=== PATIENT | female | born 1990 | race Caucasian/White ===

== ENCOUNTER → 2017-10-11 | Outpatient (CLI) | payer OTHER | LOC: M SMT 09:46 | DX: Z34.82 Encounter for supervision of other normal pregnancy, second trimester (principal); Z3A.19 19 weeks gestation of pregnancy ==

== ENCOUNTER → 2017-11-02 | Outpatient (CLI) | payer OTHER | LOC: M SMT 14:46 | DX: Z34.82 Encounter for supervision of other normal pregnancy, second trimester (principal); Z3A.22 22 weeks gestation of pregnancy | CPT/HCPCS: 76816 ==

== ENCOUNTER → 2017-12-03 | Outpatient (CLI) | payer OTHER ==
[2017-12-03 14:19] LABS: HEMATOCRIT 36.2 % (36.0-47.0); HEMOGLOBIN 12.1 g/dl (12.0-16.0); MEAN CORPUSCULAR HEMOGLOBIN 31.8 pg (27.0-33.0); MEAN CORPUSCULAR HGB CONC 33.4 g/dl (32.0-36.5); PLATELET COUNT, AUTOMATED 286 10^3/uL (150-450); RED BLOOD COUNT 3.81 10^6/uL (4.00-5.40); RED CELL DISTRIBUTION WIDTH 13.6 % (11.5-14.5); WHITE BLOOD COUNT 8.3 10^3/uL (4.0-10.0)
[2017-12-03 14:19] LABS: GLUCOSE CHALLENGE TEST 1 HOUR 128 MG/DL (LESS THAN 140)
== END ==
LOC: M SMT 08:11
DX: Z34.82 Encounter for supervision of other normal pregnancy, second trimester (principal)

== ENCOUNTER → 2018-02-05 | Outpatient (REF) | payer OTHER | LOC: M LAB REF 17:00 | DX: Z34.83 Encounter for supervision of other normal pregnancy, third trimester (principal) ==

== ENCOUNTER 2018-02-27 00:17 | Inpatient (IN) | payer OTHER ==
[2018-02-27] MEDS: LACTATED RINGER'S 1000 ML IV (00:49)
[2018-02-27] MEDS ORDERED: LR 1,000 ML IV (00:49)
[2018-02-27] MEDS ORDERED: FENTANYL 2MCG/ML ROPIVACAINE 0.2% IN 0.9% NACL 200ML IVBAG As Ordered (00:53)
[2018-02-27 00:58] LABS: HEMATOCRIT 35.3 % (36.0-47.0); HEMOGLOBIN 12.5 g/dl (12.0-15.5); MEAN CORPUSCULAR HGB CONC 35.4 g/dl (32.0-36.5); MEAN CORPUSCULAR VOLUME 90.3 fl (80.0-96.0); PLATELET COUNT, AUTOMATED 242 10^3/uL (150-450); RED BLOOD COUNT 3.91 10^6/uL (4.00-5.40); RED CELL DISTRIBUTION WIDTH 13.2 % (11.5-14.5); WHITE BLOOD COUNT 17.1 10^3/uL (4.0-10.0)
[2018-02-27] MEDS ORDERED: OXYTOCIN 30 UNITS IN 0.9% NaCl 500ML IV BAG (J2590) As Ordered (02:56)
[2018-02-27] MEDS: OXYTOCIN DRIP 30 UNITS in APPROPRIATE DILUENT 1 EA IV (04:48)
[2018-02-27] MEDS ORDERED: ONDANSETRON 4MG/2ML VIAL (J2405) IV (05:00)
[2018-02-27] MEDS ORDERED: PROMETHAZINE 25 MG TAB PO (05:00)
[2018-02-27] MEDS: PRENATAL VITAMINS CHEWABLE TABLET PO (07:35)
[2018-02-27] MEDS: IBUPROFEN 800 MG TAB PO (19:28)
[2018-02-27] MEDS: DOCUSATE SODIUM 100 MG CAP PO (20:48)
[2018-02-28] MEDS: ACETAMINOPHEN 500 MG TAB PO (04:04)
[2018-02-28] MEDS: PRENATAL VITAMINS CHEWABLE TABLET PO (08:20)
[2018-02-28] MEDS: IBUPROFEN 800 MG TAB PO (10:04)
[2018-03-01] MEDS: RHOGAM 300 MCG (1500 IU) INJ (J2790) IM (07:11)
[2018-03-01] MEDS: MEASLES,MUMPS,RUBELLA VACCINE INJ (MMR-II) (90707) SC (07:11)
[2018-03-01] MEDS: PRENATAL VITAMINS CHEWABLE TABLET PO (08:33)
[2018-03-01] MEDS: DIBUCAINE 1% OINTMENT 30GM TOP (08:33)
== END 2018-03-01 15:20 | disposition home or self-care (01) | DRG 775 ==
LOC: M LDO 00:17 → M LDI 00:33 → M OBS 08:39
PROVIDERS: Obstetrics & Gynecology
PROC: 10E0XZZ Delivery of Products of Conception, External Approach (ICD-10-PCS; principal; 2018-02-27)
PROC: 0HQ9XZZ Repair Perineum Skin, External Approach (ICD-10-PCS; 2018-02-27)
DX: O70.0 First degree perineal laceration during delivery (principal); Z37.0 Single live birth; Z3A.39 39 weeks gestation of pregnancy

== ENCOUNTER → 2019-12-16 | Outpatient (REF) | payer OTHER ==
[~2019-12-16] MED LIST: COLA100C5 PO; IBUP-1022 PO; MAPA500T2 PO; PRENTAB55 PO
[2019-12-16 13:59] LABS: HEMATOCRIT 38.5 % (36.0-47.0); HEMOGLOBIN 13.5 g/dl (12.0-15.5); MEAN CORPUSCULAR HEMOGLOBIN 31.4 pg (27.0-33.0); MEAN CORPUSCULAR HGB CONC 35.1 g/dl (32.0-36.5); MEAN CORPUSCULAR VOLUME 89.5 fl (80.0-96.0); PLATELET COUNT, AUTOMATED 310 10^3/uL (150-450); WHITE BLOOD COUNT 11.1 10^3/uL (4.0-10.0)
[2019-12-16 15:29] LABS: CHLAMYDIA DNA AMPLIFICATION NEGATIVE (NEGATIVE); GC DNA AMPLIFICATION NEGATIVE (NEGATIVE)
[2019-12-17 10:32] LABS: HEPATITIS B SURFACE ANTIGEN NEGATIVE (NEGATIVE); HIV 1&2 SCREEN CENTAUR NEGATIVE (NEGATIVE); RUBELLA IgG QUALITATIVE IMMUNE (IMMUNE)
== END ==
LOC: M PLALAB 11:23
PROVIDERS: ATTEND Advanced Practice Midwife
DX: Z34.81 Encounter for supervision of other normal pregnancy, first trimester (principal)

== ENCOUNTER → 2020-03-10 | Outpatient (CLI) | payer OTHER ==
--- NOTE | 2020-03-11 03:38 | REP ---
Clinical: Anatomical evaluation. Comparison: None . Findings: Examination demonstrates a single live intrauterine in variable presentation. motion is identified by technologist. Placenta is noted posterior and grade I without evidence for placenta previa or abruption. Placental tip measures 2.9 cm from the closed internal os. Amniotic fluid volume is normal. Cervix measures 3.2 cm in length and appears closed. No evidence for nuchal cord. Gestational age by LMP 20 weeks 2 days with RAY 07/26/2020 . Gestational age by current measurements 20 weeks 4 days with RAY 07/24/2020 . FHR equals 146 beats per minute. BPD 4.6 cm 20 weeks 0 days HC 18.1 cm 20 weeks 4 days AC 15.8 cm 21 weeks 0 days FL 3.6 cm 21 weeks 2 days HL 3.4 cm 21 weeks 3 days HC/AC ratio 1.15 Estimated weight 392 grams ( 72nd percentile). Anatomical assessment demonstrates normal structures including cranium, choroid plexus, cavum, cerebellum/posterior fossa, facial features, lungs, four-chamber heart/ventricular outflow tracts, diaphragm, stomach, cord insertion/three-vessel cord, kidneys/bladder, spine, and extremities. Impression: Single live intrauterine in variable presentation demonstrating appropriate estimated weight and growth. Anatomical assessment is complete and normal. No gross abnormalities are identified.
== END ==
LOC: M WHC 08:54
PROVIDERS: ATTEND Nurse Practitioner Women's Health
DX: Z34.82 Encounter for supervision of other normal pregnancy, second trimester (principal); Z36.89 Encounter for other specified antenatal screening; Z3A.20 20 weeks gestation of pregnancy

== ENCOUNTER → 2020-06-28 | Outpatient (REF) | payer OTHER | LOC: M SFHCWAGY 17:19 | PROVIDERS: ATTEND Advanced Practice Midwife | DX: Z34.83 Encounter for supervision of other normal pregnancy, third trimester (principal); Z3A.00 Weeks of gestation of pregnancy not specified ==

== ENCOUNTER 2020-07-17 01:33 | Inpatient (IN) | payer OTHER ==
[2020-07-17] VITALS (12 sets, daily range): BP systolic 104–143; BP diastolic 58–83
[2020-07-17] MEDS ORDERED: OXYTOCIN 30 UNITS IN 0.9% NaCl 500ML IV BAG (J2590) As Ordered ONE (01:48)
[2020-07-17] MEDS ORDERED: ANUSOL HC CREAM 30GM TOP PRN (03:30)
[2020-07-17] MEDS ORDERED: OXYTOCIN INJ 10 UNITS/ML VIAL (J2590) IM ONE (03:30)
[2020-07-17] MEDS ORDERED: MEASLES,MUMPS,RUBELLA VACCINE INJ (MMR-II) (90707) SC SCH (03:30)
[2020-07-17] MEDS ORDERED: MOM 30ML SUSPENSION UDC PO PRN (03:30)
[2020-07-17] MEDS ORDERED: DIBUCAINE 1% OINTMENT 30GM TOP PRN (03:30)
[2020-07-17] MEDS ORDERED: DOCUSATE SODIUM 100 MG CAP PO PRN (03:30)
[2020-07-17] MEDS ORDERED: LIDOCAINE 1% MDV 20ML VIAL INFIL ONE (03:30)
[2020-07-17] MEDS ORDERED: ACETAMINOPHEN TAB 650MG DOSE (2X325MG) PO PRN (03:30)
[2020-07-17] MEDS ORDERED: RHOGAM 300 MCG (1500 IU) INJ (J2790) IM SCH (03:30)
[2020-07-17] MEDS ORDERED: IBUPROFEN 600MG TAB PO PRN (03:30)
[2020-07-17] MEDS ORDERED: METHYLERGONOVINE MALEATE 0.2 MG TAB PO PRN (03:30)
[2020-07-17] MEDS ORDERED: METHYLERGONOVINE MALEATE 0.2 MG/ML VIAL (J2210) As Ordered ONE (03:43)
[2020-07-17] MEDS ORDERED: METHYLERGONOVINE MALEATE 0.2 MG/ML VIAL (J2210) IM ONE (03:45)
--- NOTE | 2020-07-17 03:47 | HPEPDOC ---
Obstetrical History & Physical General Date of Admission Jul 17, 2020 at 01:33 History of Present Illness Chief Complaint: Active Labor, Rupture of membranes (Clear at 2300) Information Provided By: Patient Age: 30 : 2 Term: 1 Pre-term: 0 Abortions: 0 Livin Care Care: Good Care Dating Final EDC: Jul 26, 2020 Final EDC by: LMP EGA at Admission: 38.5 Antepartum Course Height (inches): 64 Pre- weight (lbs.): 125 Past Medical History Past Obstetrical History : Past Obstetrical History: Primgravida Date of Delivery: February 27, 2018 Type of Delivery: Spontaneous Vaginal Del. 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 Past Medical History Medical History Denies Surgical History: Gallbladder Family History Significant Family History: Cancer (MGM-Ovarian CA), Diabetes, Other (MGM- Endometriosis) Social History Marital Status: Family situation: Spouse/partner home Psychosocial History: No pertinent psych hx * Smoker: non-smoker Alcohol: Denies Drugs: denies Imunizations Tdap status: current Influenza Status: needs Allergies Coded Allergies: MS - No Known Drug Allergy (Verified Allergy, Unknown, 02/27/18) Medications Scheduled Xji028/Iron Fum/Folic/Docusate ( 19 Tablet) 1 Tab Tab, 1 TAB PO DAILY Physical Examination Physical Examination GENERAL: Alert and oriented times three. BREAST: . ABDOMEN: Gravid and non-tender to touch. FETUS: Is vertex (VTX) by sterile vaginal examination (SVE), fetus is vertex (VTX) by Azar, EFW 7-7.5lbs. HEART RATE: Regular rate and rhythm. LUNGS: Clear to auscultation (CTA). EXTREMITIES: No edema. No clonus. Deep tendon reflexes (DTRs) + 2. Laboratory Data 24H LABS Laboratory Tests 2 07/17/20 02:02: Serology Scanned Report Hepatitis B Testing Pertinent Laboratoy Data Blood Type: A+ RBC Antibody Screen: Negative HIV: Negative Hepatitis B: Negative Hepatitis C: Negative Rapid Plasma Reagin: Nonreactive Rubella: Immune Varicella: Unknown Chlamydia/Gonorrhea: Negative Group B Streptococcus: Negative Quad Screen Test: Declined Cystic Fibrosis: Declined Glucose Tolerance Test: 94 Anatomy Ultrasound Ultrasound Date: March 10, 2020 Placenta Location: Posterior Normal Anatomy: Yes Placenta Previa: No Estimated Weight (grams): 392 Steroid Therapy Steroid Therapy: No Vaginal Examination Dilation: complete Effacement: 100% Station: +2 Presentation: Cephalic presentation Position: Vertex (occiput) Assessment Heart Rate (FHR): 125 Variability: Moderate Accelerations: None Decelerations: Variable Tocometer Contractions: Yes Frequency: regular, every 1-3 min. Duration: greater than 60 seconds Strength: palpated as strong Multi-drug resistant Organism: No history of MDRO Assessment/Plan Assessment Ahmet is a 30-year-old (G)2 para (P)1-0-0-1 at 38+5 weeks by LMP. Presents to Labor and Delivery (L&D) in active labor, fully dilated and pushing with contractions. Reports contractions started at 2300 and woke her from sleeping. Unsure of rupture of membranes, no membranes felt on exam. S/O reports her having some fluid leaking around 2300 shortly after contractions started. Clear fluid noted at introitus with pushing and movement. 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 Diet: Regular. Group B Streptococcus (GBS) negative. Labs and intravenous (IV) per unit protocol. Plan for unmedicated delivery due to advance dilation. Counseled on Pitocin IM PP if unable to get IV started. Anticipate normal spontaneous delivery (). C-S as appropriate. Batsheva Guzman CNM Jul 17, 2020 03:42
[2020-07-17] MEDS: ACETAMINOPHEN 500 MG TAB PO PRN ×3 (03:50→21:41)
--- NOTE | 2020-07-17 04:07 | DNPDOC ---
[facility] Delivery Note Delivery Note DATE OF DELIVERY: 07/17/20 PREDELIVERY DIAGNOSIS: 38-5/7 weeks' gestation and labor. POST DELIVERY DIAGNOSIS: Delivered. PROCEDURE: Spontaneous vaginal delivery. PROVIDER: ELIZABETH Gómez/FRANCESCA Nam ANESTHESIA: Lidocaine 1% for repair. ESTIMATED BLOOD LOSS: 200 mL. FINDINGS: 7 pound 14 ounce, 3560gm Male infant, Score 9/9. DELIVERY SUMMARY: Patient is a 30-year-old 2 now para 2-0-0-2 who was admitted to labor and delivery for spontaneous active labor. Arrived fully dilated and pushing at 0134. Contractions and SROM for clear fluid at home at 2300. Delivered viable Male at 0236 in RAIN position, and was placed skin to skin on maternal chest, active and crying. No nuchal cord identified. scores 9/9, weight 3560g, 7lb 14oz. Cord blood was collected. Gentle cord traction with uterine guarding for release of placenta. Placenta delivered spontaneously intact at 0243, katey mechanism, 3 vessel cord. Pitocin 10units IM in right thigh by nursing, for management of uterine bleeding after IV failed. Fundus firmed at umbilicus, small flow, no active bleeding. Cervix, vagina, and perineum inspected for lacerations. First degree laceration on the perineum repaired with 3-0 Vicryl Rapide after infiltration of the perineum with Lidocaine 1%. EBL 200mL. Mother and baby skin to skin, , and bonding, left in stable condition. Sponge, sharp and instrument count correct. Batsheva Guzamn CNM Jul 17, 2020 04:07
[2020-07-17 04:08] LABS: HEMATOCRIT 40.3 % (36.0-47.0); HEMOGLOBIN 13.6 g/dl (12.0-15.5); MEAN CORPUSCULAR HEMOGLOBIN 31.3 pg (27.0-33.0); MEAN CORPUSCULAR HGB CONC 33.7 g/dl (32.0-36.5); MEAN CORPUSCULAR VOLUME 92.9 fl (80.0-96.0); PLATELET COUNT, AUTOMATED 303 10^3/uL (150-450); RED BLOOD COUNT 4.34 10^6/uL (4.00-5.40); WHITE BLOOD COUNT 10.7 10^3/uL (4.0-10.0)
[2020-07-17] MEDS: IBUPROFEN 800 MG TAB PO PRN ×2 (06:15→18:15)
[2020-07-17] MEDS: PRENATAL VITAMINS CHEWABLE TABLET PO SCH (10:51)
[2020-07-17] MEDS: METHYLERGONOVINE MALEATE 0.2 MG TAB PO SCH ×3 (10:51→21:41)
[2020-07-18] MEDS: METHYLERGONOVINE MALEATE 0.2 MG TAB PO SCH (03:45)
[2020-07-18 05:00] VITALS: BP 97/52
[2020-07-18] MEDS: IBUPROFEN 800 MG TAB PO PRN (09:18)
[2020-07-18] MEDS: PRENATAL VITAMINS CHEWABLE TABLET PO SCH (09:18)
[2020-07-18] MEDS ORDERED: METHYLERGONOVINE MALEATE 0.2 MG TAB PO PRN (09:45)
--- NOTE | 2020-07-18 11:40 | IPNPDOC ---
Progress Note Date of Service: Jul 18, 2020 Day#: 1 Progress Note SUBJECT: Pain well controlled. No heavy VB/lochia. Ambulating without diffic ulty. Voiding spontaneously. Tolerating PO. OBJECTIVE: VITAL SIGNS: Within normal limits, afebrile. Alert and oriented times three. Breath sounds clear to auscultation. Heart rate: Regular rate and rhythm, no murmurs, rubs or gallops. Abdomen: Fundus firm at U-2. Soft, NTTP. ASSESSMENT: Recovering well s/p uncomplicated . Vitals within normal limits, afebrile, hemodynamically stable with no evidence of infection. PLAN: Discharge to home today. Tylenol and Motrin for pain. Routine PP visit in 6 weeks in clinic. Routing PP precautions/instructions reviewed. VS, I&O, 24H, Fishbone Vital Signs/I&O Vital Signs Date Time Temp Pulse Resp B/P (MAP) Pulse Ox O2 Delivery O2 Flow Rate FiO2 07/18/20 05:00 97.6 80 20 97/52 (67) 98 Room Air SAMARA BEDOLLA DO Jul 18, 2020 11:40
== END 2020-07-18 16:30 | disposition home or self-care (01) | DRG 807 ==
LOC: M LDI 01:33 → M OBS 05:28
PROVIDERS: ADMIT Advanced Practice Midwife; ATTEND Advanced Practice Midwife
PROC: 10E0XZZ Delivery of Products of Conception, External Approach (ICD-10-PCS; principal; 2020-07-17)
PROC: 0HQ9XZZ Repair Perineum Skin, External Approach (ICD-10-PCS; 2020-07-17)
DX: O62.3 Precipitate labor (principal); Z37.0 Single live birth; Z3A.38 38 weeks gestation of pregnancy; O70.0 First degree perineal laceration during delivery

== ENCOUNTER → 2020-09-24 | Outpatient (REF) | payer OTHER | LOC: M SFHCWAGY 13:03 | PROVIDERS: ATTEND Nurse Practitioner Women's Health | DX: Z12.4 Encounter for screening for malignant neoplasm of cervix (principal) ==

== ENCOUNTER → 2022-07-27 | Outpatient (CLI) | payer OTHER | LOC: M WHC 15:05 | PROVIDERS: ATTEND Obstetrics & Gynecology | DX: Z36.89 Encounter for other specified antenatal screening (principal); Z3A.20 20 weeks gestation of pregnancy ==

== ENCOUNTER → 2022-08-25 | Outpatient (CLI) | payer OTHER | LOC: M WHC 08:47 | PROVIDERS: ATTEND Obstetrics & Gynecology | DX: Z36.2 Encounter for other antenatal screening follow-up (principal); Z3A.25 25 weeks gestation of pregnancy ==

== ENCOUNTER → 2022-09-06 | Outpatient (CLI) | payer OTHER ==
[2022-09-06 14:22] LABS: HEMATOCRIT 35.7 % (36.0-47.0); HEMOGLOBIN 11.8 g/dl (12.0-15.5); MEAN CORPUSCULAR HEMOGLOBIN 31.9 pg (27.0-33.0); MEAN CORPUSCULAR HGB CONC 33.1 g/dl (32.0-36.5); MEAN CORPUSCULAR VOLUME 96.5 fl (80.0-96.0); PLATELET COUNT, AUTOMATED 317 10^3/uL (150-450); WHITE BLOOD COUNT 9.3 10^3/uL (4.0-10.0)
[2022-09-06 15:49] LABS: GC DNA AMPLIFICATION NEGATIVE (NEGATIVE)
== END ==
LOC: M PLALAB 08:47
PROVIDERS: ATTEND Obstetrics & Gynecology
DX: Z34.82 Encounter for supervision of other normal pregnancy, second trimester (principal); Z3A.00 Weeks of gestation of pregnancy not specified

== ENCOUNTER → 2022-09-28 | Outpatient (CLI) | payer OTHER | LOC: M WHC 15:20 | PROVIDERS: ATTEND Obstetrics & Gynecology | DX: Z36.2 Encounter for other antenatal screening follow-up (principal); Z3A.29 29 weeks gestation of pregnancy ==

== ENCOUNTER → 2022-09-28 | Outpatient (CLI) | payer OTHER | LOC: M LAB 08:03 | PROVIDERS: ATTEND Obstetrics & Gynecology | DX: Z34.82 Encounter for supervision of other normal pregnancy, second trimester (principal) ==

== ENCOUNTER → 2022-11-13 | Outpatient (REF) | payer OTHER | LOC: M SFHCWAGY 13:01 | PROVIDERS: ATTEND Advanced Practice Midwife | DX: O24.419 Gestational diabetes mellitus in pregnancy, unspecified control (principal) ==